=== PATIENT | female | born 1940 ===

== ENCOUNTER 2018-07-07 08:23 | Day surgery (SDC) | payer MEDICARE ==
[2018-07-07] MEDS ORDERED: Lactated Ringer's 500 ML IV ONE ×2 (08:55→10:43)
[2018-07-07 08:57] VITALS: BMI 23.8
[2018-07-07] MEDS ORDERED: Propofol 10 mg/ml Inj (20 ML) ONE (10:32)
[2018-07-07 11:02] VITALS: RESP 13; TEMP 97.3
[2018-07-07 11:26] VITALS: BP 107/62; PULSE 61; O2SAT 100
== END 2018-07-07 12:00 | disposition home or self-care (01) ==
LOC: H.ENDO 08:23
PROVIDERS: ATTEND Internal Medicine Gastroenterology
DX: Z86.010 Personal history of colon polyps (principal); E11.9 Type 2 diabetes mellitus without complications; E78.5 Hyperlipidemia, unspecified; K64.8 Other hemorrhoids; K57.30 Diverticulosis of large intestine without perforation or abscess without bleeding
CPT/HCPCS: G0105; J2001; J2704; J7120